=== PATIENT | male | born 1950 | race Caucasian/White ===

== ENCOUNTER 2020-08-05 09:49 | Day surgery (SDC) | payer MEDICARE ==
[2020-08-03 12:09] LABS: BASOPHILS % (AUTO) 1 % (0-1); EOSINOPHILS % (AUTO) 3 % (1-7); LYMPHOCYTES % (AUTO) 16 % (22-44); MEAN CORPUSCULAR HEMOGLOBIN 31.8 pg (27.5-34.5); MEAN CORPUSCULAR HGB CONC 33.6 g/dL (33.2-36.2); MEAN PLATELET VOLUME 8.8 fL (7.4-10.4); MONOCYTES % (AUTO) 6 % (2-9); NEUTROPHILS % (AUTO) 74 % (42-75); PLATELET COUNT 207 x10^3/uL (130-400); RED BLOOD COUNT 3.91 x10^6/uL (4.38-5.82); RED CELL DISTRIBUTION WIDTH 13.3 % (9.4-14.8)
[2020-08-03 12:16] LABS: PROTHROMBIN TIME 10.7 Seconds (9.6-11.5)
[2020-08-03 12:18] LABS: ALANINE AMINOTRANSFERASE 20 U/L (12-78); ANION GAP 12 mmol/L (5-15); CHLORIDE 107 mmol/L (98-107); CREATININE 7.42 mg/dL (0.7-1.3)
[2020-08-03 12:21] LABS: ALKALINE PHOSPHATASE 56 U/L (45-117); BILIRUBIN,TOTAL 0.3 mg/dL (0.2-1.0)
[~2020-08-05] VITALS: Ht 182.9 cm; Wt 108.7 kg
[~2020-08-05 09:49] MED LIST: ALBU8.5H8 INH; ASPI81TA45 PO; FURO80TA3 PO; LISI5TAB7 PO; NICO4GUM40 PO; SODI454P PO; TAMS-11 PO
[2020-08-05 10:25] VITALS: BP 147/75
[2020-08-05] MEDS ORDERED: LACTATED RINGERS 1,000 ML IV SCH (10:30)
[2020-08-05] MEDS ORDERED: CHLORHEXIDINE 15 ML UDC PO ONE (10:30)
[2020-08-05] MEDS ORDERED: BUPIVACAINE/PF 0.5% ONE (10:56)
[2020-08-05] MEDS ORDERED: EPINEPHRINE 1 MG/ML, 1ML ONE (10:56)
[2020-08-05] MEDS ORDERED: PROPOFOL 10 MG/ML, 20ML ONE (12:59)
[2020-08-05] MEDS ORDERED: FENTANYL PF 250 MCG/5ML ONE (12:59)
[2020-08-05] MEDS ORDERED: NEOSTIGMINE 1 MG/ML, 10ML ONE (12:59)
[2020-08-05] MEDS ORDERED: CEFAZOLIN 1,000 MG ONE (12:59)
[2020-08-05] MEDS ORDERED: GLYCOPYRROLATE 0.2MG/1ML, 5ML ONE (12:59)
[2020-08-05] MEDS ORDERED: SUCCINYLCHOLINE 20 MG/ML, 10ML ONE (12:59)
[2020-08-05] MEDS ORDERED: ROCURONIUM 10 MG/ML,10ML ONE (12:59)
[2020-08-05] MEDS ORDERED: BUPIVACAINE/PF-EPI 0.5% 1:200K INFIL ONE (13:17)
[2020-08-05] MEDS ORDERED: ONDANSETRON 2MG/ML, 2ML IVPush PRN (14:00)
[2020-08-05] MEDS ORDERED: MEPERIDINE/PF 25MG/0.5ML IVPush PRN (14:00)
[2020-08-05] MEDS ORDERED: ACETAMINOPHEN 325 MG TABLET PO PRN (14:00)
[2020-08-05] MEDS ORDERED: LABETALOL 5MG/ML, 20ML IV PRN (14:00)
[2020-08-05] MEDS ORDERED: HYDROmorphone 1 MG/ML, 1ML INJ IVPush PRN (14:00)
[2020-08-05] MEDS ORDERED: METOPROLOL 1 MG/ML, 5ML IV PRN (14:00)
[2020-08-05] MEDS ORDERED: hydrALAzine 20 MG/ML, 1ML IV PRN (14:00)
[2020-08-05] MEDS ORDERED: PROMETHAZINE 25 MG/ML, 1ML IVPush PRN (14:00)
[2020-08-05] MEDS ORDERED: METHOCARBAMOL 1,000 MG in DEXTROSE 5% 100 ML IV PRN (14:00)
[2020-08-05] MEDS ORDERED: FENTANYL PF 100 MCG/2ML IV PRN (14:00)
[2020-08-05] MEDS ORDERED: LORazepam 2 MG/ML, 1ML IVPush PRN (14:00)
[2020-08-05] MEDS ORDERED: OXYcodone 5 MG/5 ML ORAL.SOL UDC ONE (14:20)
[2020-08-05] MEDS: OXYcodone 5 MG/5 ML ORAL.SOL UDC PO PRN ×2 (14:20→15:04)
[2020-08-05] MEDS ORDERED: FENTANYL PF 100 MCG/2ML ONE (14:20)
[2020-08-05] MEDS ORDERED: ACETAMINOPHEN 325 MG TABLET ONE (15:09)
== END 2020-08-05 15:55 | disposition home or self-care (01) ==
LOC: OUT 09:49 → EDSTATUS 12:30 → OUT 15:55
PROVIDERS: ATTEND Surgery
DX: I12.0 Hypertensive chronic kidney disease with stage 5 chronic kidney disease or end stage renal disease (principal); E11.22 Type 2 diabetes mellitus with diabetic chronic kidney disease; N18.5 Chronic kidney disease, stage 5; G47.33 Obstructive sleep apnea (adult) (pediatric); J44.9 Chronic obstructive pulmonary disease, unspecified; Z79.82 Long term (current) use of aspirin; Z79.899 Other long term (current) drug therapy; Z20.822 Contact with and (suspected) exposure to COVID-19; Z88.1 Allergy status to other antibiotic agents; Z88.8 Allergy status to other drugs, medicaments and biological substances; Z87.891 Personal history of nicotine dependence; Z98.890 Other specified postprocedural states
CPT/HCPCS: 36415; 49324; 71046; 80053; 85025; 85610; 85730; 93005; C1750; J0171; J0330; J0690; J2704; J2710; J3010; J7120; U0003; U0005